=== PATIENT | female | born 2000 | race Two or more races ===

== ENCOUNTER → 2024-09-01 | Outpatient (CLI) | payer MEDICAID, SELFPAY ==
--- NOTE | 2024-09-01 14:30 | XR_ITS ---
Examination: MRI brain without intravenous contrast. Date and time of exam: September 01, 2024 1433 hours INDICATIONS: Headaches dizziness paresthesias and tingling in the feet and hands 3 months Technique: Multiple axial and sagittal images of the brain obtained. Siemens high-resolution 1.5 Patty short bore scanners utilized. Sagittal sections, T1-weighted, TR 500, TE 14, are performed. Axial sections proton-density and T2-weighted have been obtained. Inversion recovery axial images, TR 9, 260, TE 111, TI 2500. Diffusion weighted images, axial sections, TR 4800, TE 128, B value 1000 Axial sections, ADC map, TR 4800, TE 128 Findings: Enlargement of the sella turcica is not present. The optic chiasm and infundibular are not remarkable. Prepontine and interpeduncular cisterns are not enlarged. There is no localized enlargement of the medulla or kalin. Fourth ventricle and cerebellar tonsils appear normal in position. No subacute area of hemorrhage density is seen. Mass in the cerebellopontine angle region is not evident. Globes symmetrical. Orbital musculature including medial lateral rectus muscles do not exhibit abnormality. Diffusion-weighted images demonstrate no foci restricted diffusion. Increased white matter signal not seen Mass effect upon the ventricular system is not identified. Impression: Negative for acute hemorrhage mass effect or midline shift No acute infarct No MR findings diagnostic for demyelinating disease
== END | disposition home or self-care (01) ==
PROVIDERS: PCP Physician Assistant; Referring Provider Physician Assistant; Visit Provider Physician Assistant
DX: R51.9 Headache, unspecified (principal)
CPT/HCPCS: 70551

== ENCOUNTER 2025-03-08 23:42 | Emergency (ER) | payer MEDICAID, SELFPAY ==
[2025-03-08 23:43] VITALS: BMI 31.1
[2025-03-08 23:53] VITALS: BP 132/82; PULSE 69; RESP 18; TEMP 36.7; O2SAT 97
--- NOTE | 2025-03-09 00:06 | XR_ITS ---
Examination: Abdomen sonogram, Limited Date and time of exam: March 09, 2025, 0044 hours INDICATIONS: Epigastric pain beginning 1 week ago Technique: Real-time allred scale transabdominal sonographic images of the upper abdomen obtained. Findings: Contracted gallbladder No gallstones noted Common bile duct 0.3 cm Pancreatic head 2.3 cm Liver 16.1 cm smooth contour no focal liver lesions Normal hepatopetal portal venous flow Patent IVC IMPRESSION: Repeat the gallbladder portion of the study with fasting
--- NOTE | 2025-03-09 00:06 | XR_ITS ---
Examination: CT abdomen and pelvis without contrast. Coronal 3-D reconstructions. Sagittal 2-D reconstructions. Date and time of exam: March 09, 2025, 0203 hours INDICATIONS: Onset abdominal pain back pain flank pain beginning 1 week ago CTDI: vol (mGy): 9.54 DLP: (mGycm): 538 Technique: Axial images of the abdomen have been obtained, 3 mm slice thickness Intravenous contrast material has not been administered. Low dose protocols were performed. One or more of the following dose reduction techniques were used; automated exposure control, adjustment of the mA and/or KV according to patient size, use of iterative reconstruction technique. Findings: No focal liver or splenic lesion, no definite gallstones The pancreatic head is prominent axial image 65 with possible edema Aorta is not enlarged No renal or ureteral calculi, no hydronephrosis Mild thickening of the umbilical tract No bowel obstruction or diverticulitis There is trace free fluid in the pelvis No pericecal inflammatory change No bowel obstruction Anteverted uterus No adnexal mass Contracted urinary bladder Osseous structures are intact IMPRESSION: Suspicious for mild pancreatitis, clinical correlation advised Appendix is not diagnostically visualized, no definite pericecal inflammatory change No bowel obstruction or diverticulitis
--- NOTE | 2025-03-09 00:06 | EDNOTE_ITS ---
ED Abdominal Pain RME/HPI General Chief Complaint: Abdominal Pain Stated complaint: ABD PAIN, BACK PAIN Time seen by provider: 03/09/25 00:05 Arrival date/time: 03/08/25 23:42 RME / HPI RME / HPI narrative: See [facility] for Dr. Rodriguez's HPI Documentation. Related Data Previous Rx's ?Medication ?Instructions ?Recorded acetaminophen 650 mg 650 mg PO Q8H PRN fever or p ain 08/03/18 tablet,extended release #30 tabs ibuprofen 600 mg tablet 600 mg PO Q8H PRN fever or p ain 08/03/18 #30 tabs oseltamivir 75 mg capsule (Tamiflu) 75 mg PO Q12H #10 caps 08/03/18 ibuprofen 800 mg tablet 800 mg PO TID PRN pain #30 t abs 11/05/22 cetirizine 10 mg tablet (24Hour 10 mg PO QDAY PRN kindra rgy symptoms 05/10/23 Allergy) #7 tabs famotidine 20 mg tablet (Pepcid) 20 mg PO QDAY #7 tabs 05/10/23 hydrocortisone 1 % topical cream 1 applic topical TID PRN allergic 05/10/23 reaction #28.4 grams magnesium hydroxide 2,400 mg/10 mL 30 ml PO QDAY PRN c onstipation #60 03/09/25 oral suspension (Milk Of Magnesia mL Concentrated) sennosides 8.6 mg-docusate sodium 4 tab-cap (4 x 8.6-5 0 mg) PO QDAY 03/09/25 50 mg tablet (Senokot-S) PRN constipation #20 tabs Allergies Allergy/AdvReac Type Severity Reaction Status Date / Time No Known Allergies Allergy Verified 03/08/25 23:43 Review of Systems Review of Systems Systems Reviewed: All systems reviewed, normal except as documented ED Exam Narrative Physical exam: See [facility] for Dr. Rodriguez's Physical Exam Documentation. Course Quality Measures none Orders Category Date Time Status Saline [Insert IV] NOW Care 03/09/25 00:[address] abdomen pelvis wo con Stat Exams 03/09/25 00:06 Taken US gall bladder Stat Exams 03/09/25 00:06 Taken US pelvic complete Stat Exams 03/09/25 00:06 Taken Amylase Stat Lab 03/09/25 00:16 Completed Bilirubin,Direct Stat Lab 03/09/25 00:16 Completed CBC Stat Lab 03/09/25 00:16 Completed CMP [Comprehensive Metabolic Panel] Stat Lab 03/09/25 00:16 Completed HCG,Qualitative Serum Stat Lab 03/09/25 00:16 Completed Lipase Stat Lab 03/09/25 00:16 Completed Magnesium Stat Lab 03/09/25 00:16 Completed UA, C/S IF [Urinalysis, C/S if Indicated] Stat Lab 03/09/25 01:10 Completed Ketorolac Inj [Toradol Inj] Med 03/09/25 00:05 Discontinued 30 mg IVP X1 ONE Ondansetron Inj [Zofran Inj] Med 03/09/25 00:05 Discontinued 4 mg IVP X1 ONE Sodium Chloride 0.9% 1000 ml [Ns] 1,000 ml Med 03/09/25 00:05 Discontinued IV 999 mls/hr Vital Signs Vital signs: Vital Signs Temperature 98.1 F 03/08/25 23:53 Pulse Rate 69 03/08/25 23:53 Respiratory Rate 18 03/08/25 23:53 Blood Pressure 132/82 H 03/08/25 23:53 Pulse Oximetry (%) 97 03/08/25 23:53 Oxygen Delivery Method Room Air 03/08/25 23:53 Abdominal Pain MDM MDM Narrative MDM Narrative:: This section includes all my notes and documentations, including HPI, PE, and ED course. Shar Rodriguez MD HPI: 24 y/o female presents with several days of abdominal pain. Has trouble localizing the pain. Has trouble describing the quality and quantity of the pain. Uncertain about exacerbating factors or relieving factors. Has nausea occasionally. Has been eating normally. Drink heavy alcohol but quit 3 years ago. No other complaints. ROS: All negative except as documented in HPI. Physical Exam: General: Alert and oriented. No acute distress when remaining still. Eyes: Conjunctivae and lids clear. ENT: No nasal congestion. Neck: Supple. Heart: RRR. Lungs: No respiratory distress. Good air movement. No rhonchi, wheezing, rales. Abdomen: Soft with diffuse tenderness, difficult to localize. Normal bowel sounds. No distension. No rebound or guarding. Back: No CVA tenderness. Skin: Warm and dry. Neuro: Alert and oriented X 3. I reviewed all diagnostic test results: My review of the Gall Bladder US report is NAD. My review of the Pelvic US report is NAD. My review of the Abdomen/Pelvis CT report is constipation and equivocal pancreatitis. Blood tests and urine tests unremarkable. At this point, diagnoses include: Constipation Equivocal pancreatitis Treatment here included: IVF Toradol 30 mg IV Zofran 4 mg IV Significant improvement noted. Recommended more outpatient care. Based on my best medical judgment, made decision no further evaluation or treatment indicated at this time. Patient understands and agrees to the discharge instructions customized and printed, see below. Discharge instructions from Dr. Rodriguez printed for you: ?After extensive evaluation, there is no emergency.? Such as appendicitis needing urgent surgery. -Your symptoms are most likely due to constipation. ?Take milk of magnesia as prescribed and Senokot S (not plain Senokot, OTC so prescription not needed), four pills, at bedtime as needed.? May take a few days but this will help clear out your bowels. ?To help current constipation and prevent future constipation, increase oral fluid because dehydration cause severe constipation.? Maintain clear urine.? If dark or yellow, increase oral fluid. ?And every day, increase fresh fruits and fresh vegetables and physical exercise. ?See a private doctor on 03/13/2025 for recheck. Ask to review all test results and official radiology reports, to make sure you receive all necessary follow-ups and monitoring. To make sure there is no serious underlying abdominal condition, ask to help you get more care not available here in the ER.? Such as EGD or scoping of your stomach, colonoscopy or scoping the colon, and a referral to see a utility agent. ?Seek immediate medical care with worsening or with any concerns. Shar Rodriguez MD Patient data External records reviewed:: [facility] previous records (Reviewed prior ED records from 05/10/23. Patient was seen for Allergic reaction.) Clinical information provided by:: patient Social determinants that could affect healthcare access:: none Patient has the following chronic illnesses:: None reported How is presenting disease/condition affected by chronic disease/condition?: no chronic disease Evaluation data The following diagnostics were reviewed and interpreted by me:: lab results and radiology exam(s) Lab and/or radiology exams considered but not ordered:: None Interpretation Summary: I reviewed all diagnostic test results: My review of the Gall Bladder US report is NAD. My review of the Pelvic US report is NAD. My review of the Abdomen/Pelvis CT report is constipation and equivocal pancreatitis. Blood tests and urine tests unremarkable. Medications / Prescriptions Medications or Prescriptions considered but not ordered:: None Medication administrations:: Medication Administration History Discontinued Medications Sodium Chloride (Ns) 1,000 mls @ 999 mls/hr IV .Q1H1M ONE Stop: 03/09/25 01:05 Last Infusion: 03/09/25 01:41 Dose: Infused Documented By: Admin: 03/09/25 00:13 Dose: 999 mls/hr Documented By: MARIBELL Ketorolac Tromethamine (Ketorolac Inj 30 Mg/Ml Vial) 30 mg IVP X1 ONE Stop: 03/09/25 00:06 Last Admin: 03/09/25 00:13 Dose: 30 mg Documented By: MARIBELL Ondansetron HCl (Ondansetron Inj 2 Mg/Ml Inj 2 Ml) 4 mg IVP X1 ONE; Protocol Stop: 03/09/25 00:06 Last Admin: 03/09/25 00:13 Dose: 4 mg Documented By: MARIBELL Treatment here included: IVF Toradol 30 mg IV Zofran 4 mg IV Consultations Consultation(s) initiated? (list below): No Diagnosis Differential diagnosis abdominal pain: abdominal pain, calculus of kidney, constipation, diverticulitis, gastroenteritis, pancreatitis and other (Cholecystitis, Cholelithiasis) Most likely diagnosis given after review of the tests above:: Constipation Equivocal pancreatitis Admission Indicated Admission indicated?: not indicated Explain why admission is indicated or not indicated:: With significant improvement and no condition needing emergent intervention, there was no indication for admission. Admission Request Was there a request for admission?: No Disposition Plan Disposition Plan: Discharge Discharge Attestation Discharge Attestation: The patient and all family members were given an opportunity to ask questions and understood the discharge instructions. Discharge instructions specifically effects, indications for sooner follow up or return to the emergency department, and the expected course of current diagnosis. Patient condition: Stable Discharge Plan Plan Patient Disposition: HOME (Self Care) Prescriptions/Referrals Prescriptions/Med Rec: New sennosides-docusate sodium [Senokot-S] 8.6-50 mg tablet 4 tab-cap PO QDAY PRN (Reason: constipation) Qty: 20 0RF magnesium hydroxide [Milk Of Magnesia Concentrated] 2,400 mg/10 mL suspension 30 ml PO QDAY PRN (Reason: constipation) Qty: 60 0RF No Action acetaminophen 650 mg tablet extended release 650 mg PO Q8H PRN (Reason: fever or pain) Qty: 30 0RF Rx Instructions: swallow whole; do not crush, chew, break, dissolve, cut, or open ibuprofen 600 mg tablet 600 mg PO Q8H PRN (Reason: fever or pain) Qty: 30 0RF Rx Instructions: prn pain / fever oseltamivir [Tamiflu] 75 mg capsule 75 mg PO Q12H Qty: 10 0RF ibuprofen 800 mg tablet 800 mg PO TID PRN (Reason: pain) Qty: 30 0RF cetirizine [24Hour Allergy] 10 mg tablet 10 mg PO QDAY PRN (Reason: allergy symptoms) Qty: 7 0RF famotidine [Pepcid] 20 mg tablet 20 mg PO QDAY Qty: 7 0RF hydrocortisone 1 % cream 1 applic topical TID PRN (Reason: allergic reaction) Qty: 28.4 0RF Referrals: No Primary/Family,Physician [Primary Care Provider] - In 1 week Problem List Clinical Impression: Constipation, Pancreatitis Patient/Caregiver Discharge Instructions Discharge Activity: activity as tolerated Education Materials: ED Constipation (Adult), ED Pancreatitis Additional Instructions: Discharge instructions from Dr. Rodriguez printed for you: ?After extensive evaluation, there is no emergency.? Such as appendicitis needing urgent surgery. -Your symptoms are most likely due to constipation. ?Take milk of magnesia as prescribed and Senokot S (not plain Senokot, OTC so prescription not needed), four pills, at bedtime as needed.? May take a few days but this will help clear out your bowels. ?To help current constipation and prevent future constipation, increase oral fluid because dehydration cause severe constipation.? Maintain clear urine.? If dark or yellow, increase oral fluid. ?And every day, increase fresh fruits and fresh vegetables and physical exercise. ?See a private doctor on 03/13/2025 for recheck. Ask to review all test results and official radiology reports, to make sure you receive all necessary follow-ups and monitoring. To make sure there is no serious underlying abdominal condition, ask to help you get more care not available here in the ER.? Such as EGD or scoping of your stomach, colonoscopy or scoping the colon, and a referral to see a utility agent. ?Seek immediate medical care with worsening or with any concerns. Print Language: [place] Stand Alone Forms: [employer] Award Info., Patient Portal Info Letter
--- NOTE | 2025-03-09 00:06 | XR_ITS ---
Examination: Pelvic ultrasound, transabdominal, complete Technique: Transabdominal ultrasound of the pelvis performed using grayscale imaging Date and time of exam: March 09, 2025, 0055 hours INDICATIONS: Pelvic pain beginning 1 week ago FINDINGS: Uterus 8.8 cm endometrial stripe 0.4 cm No uterine mass or intrauterine gestation Right ovary 3.7 cm arterial flow Left ovary 3.0 cm arterial flow IMPRESSION: Negative examination
[2025-03-09] MEDS: SODIUM CHLORIDE 0.9% 1000 ML 1,000 ML 999 ML IV (00:13)
[2025-03-09] MEDS: ONDANSETRON INJ 2 MG/ML INJ 2 ML 4 MG IVP (00:13)
[2025-03-09] MEDS: KETOROLAC INJ 30 MG/ML VIAL IVP (00:13)
[2025-03-09 00:35] LABS: Basophils # (Auto) 0.0 Thou/mm3 (0.0-0.2); Basophils % (Auto) 1 % (0-2.5); Eosinophils # (Auto) 0.1 Thou/mm3 (0.0-0.5); Eosinophils % (Auto) 2 % (0-10); Hematocrit 38.0 % (36.0-46.0); Hemoglobin 12.5 g/dL (12.0-16.0); Immature Granulocytes Auto 0.02 Thou/mm3 (0.00-0.00); Lymphocytes # (Auto) 1.3 Thou/mm3 (1.0-4.8); Lymphocytes % (Auto) 24 % (10-50); Mean Corpuscular HGB Conc 32.9 g/dl (31.0-37.0); Mean Corpuscular Hemoglobin 27.7 pg (25.0-35.0); Mean Corpuscular Volume 84 fL (80-100); Monocytes # (Auto) 0.5 Thou/mm3 (0.0-0.8); Monocytes % (Auto) 8 % (0-12); Neutrophils # (Auto) 3.7 Thou/mm3 (1.8-7.7); Neutrophils % (Auto) 65 % (37-80); Nucleated Red Blood Cell # 0.00 Thou/mm3 (0.00-0.00); Nucleated Red Blood Cell % 0 /100 WBC (0); Platelet Count 305 Thou/mm3 (140-440); RDW Standard Deviation 40.6 fL (36.4-46.3); Red Blood Count 4.51 Miln/mm3 (4.00-5.20); White Blood Count 5.7 Thou/mm3 (3.6-11.0)
[2025-03-09 00:54] LABS: HCG,Qualitative Serum Negative
[2025-03-09 00:56] LABS: Alanine Aminotransferase 16 U/L (10-49); Albumin, Serum 4.8 gm/dL (3.5-5.0); Albumin/Globulin Ratio 2.7 (1.2-2.2); Alkaline Phosphatase 30 U/L (46-116); Amylase 64 U/L (30-118); Anion Gap 9 (7-16); Aspartate Amino Transferase 18 U/L (0-34); BUN/Creatinine Ratio 15 Ratio (12-20); Bilirubin,Direct 0.2 mg/dL (0.0-0.3); Bilirubin,Total 0.6 mg/dL (0.3-1.2); Blood Urea Nitrogen 12 mg/dL (9-23); Calcium 8.8 mg/dL (8.3-10.6); Calcium (Corrected) 8.8 mg/dL (8.5-10.1); Carbon Dioxide 27.1 mMol/L (20.0-31.0); Chloride 105 mMol/L (98-107); Creatinine (Component) 0.8 mg/dL (0.6-1.3); Estimated Creatinine Clearance 126.2 mL/min (>60); Globulin 1.8 gm/dL (2.3-3.5); Glucose 87 mg/dL (74-106); Lipase 38 U/L (12-53); Magnesium 1.8 mg/dL (1.6-2.6); Osmolality,Calculated 279 (275-295); Potassium 3.8 mMol/L (3.4-5.1); Sodium 141 mMol/L (136-145); Total Protein 6.6 gm/dL (5.7-8.2); eGFR > 60 See Note
[2025-03-09 01:23] LABS: Collection Type, Urine Clean Catch
--- NOTE | 2025-03-09 01:27 | PC.NURSE ---
pt was taken to radiology for US and was brought back to . pt states pain med that was given earlier is helping alot. pt provided a urine..
[2025-03-09 01:29] LABS: Bilirubin,Urine Negative (Negative); Blood,Urine Negative (Negative); Clarity,Urine Clear (Clear/Hazy); Color,Urine Lt-Yellow (Lt Yel-Yel); Culture Indicated,Urine Not Indicated; Glucose, Urine Negative (Negative); Ketones,Urine Negative (Negative); Leukocyte Esterase,Urine Positive (Negative); Nitrite,Urine Negative (Negative); PH,Urine 6.5 (5.0-7.0); Protein,Urine Negative (Neg - Trace); RBC,Urine 1 /hpf (0-3); Specific Gravity,Urine 1.013 (1.001-1.035); Squamous Epithelial Cell,Urine 2 /hpf (0-5); Urobilinogen,Urine Negative mg/dL (0.0-1.0); WBC,Urine 3 /hpf (0-5)
--- NOTE | 2025-03-09 01:43 | PRELIM_ITS ---
Right upper quadrant abdominal ultrasound. March 09, 2025 0046 hours Clinical history: RUQ tenderness Findings: The liver is normal in echogenicity. No intrahepatic biliary ductal dilatation. The main portal vein is patent and demonstrates hepatopetal flow. The gallbladder is contracted. No gallbladder calculus, wall thickening or pericholecystic fluid is demonstrated. The common bile duct is normal in caliber at 2.7 mm. The pancreas is unremarkable to the extent visualized. The inferior vena cava is unremarkable to the extent visualized. Impression: Contracted gallbladder. No evidence of cholelithiasis, wall thickening, pericholecystic fluid or biliary dilatation. Recommend followup after adequate fasting as indicated. Report Electronically Signed By: Jacobo Mendez 03/09/2025 1:42:03 AM [EST]
--- NOTE | 2025-03-09 01:45 | PRELIM_ITS ---
Pelvic ultrasound (transabdominal) with Doppler. March 09, 2025 0052 hours Clinical history: Pelvic pain Findings: The uterus is anteverted, normal in size measuring 8.8 x 3.9 x 4.9 cm. The endometrium is unremarkable and measures 0.4 cm. The right ovary measures 3.7 x 1.7 x 2.4 cm. The left ovary measures 3 x 2.5 x 2.8 cm. Both ovaries demonstrate color flow and spectral waveforms on Doppler evaluation. There is no adnexal mass. There is no free fluid on the submitted images. Impression: No abnormality identified. Report Electronically Signed By: Jacobo Mendez 03/09/2025 1:44:18 AM [EST]
[2025-03-09 02:52] VITALS: BP 118/70; PULSE 54; RESP 16; O2SAT 99
--- NOTE | 2025-03-09 03:58 | PRELIM_ITS ---
CT scan of the abdomen and pelvis without intravenous contrast (axial sections with sagittal and coronal reformats) March 09, 2025 at 0203 hours Clinical History: Abdominal pain. Comparison: Correlated with the prior ultrasound pelvis study performed earlier today at 0052 hours. Findings: The head of the pancreas is prominent and demonstrates mild peripancreatic fat stranding. No peripancreatic fluid or fluid collection. No pancreatic or biliary ductal dilatation. The liver, gallbladder, spleen, kidneys and adrenals are unremarkable on this noncontrast study. No evidence of bowel obstruction. A moderate amount of fecal material is present in the colon. The appendix is not visualized. There are subcentimeter mesenteric and retroperitoneal lymph nodes. The urinary bladder is partially distended and shows mild wall thickening; possibility of cystitis cannot be excluded. The uterus is unremarkable. There are small ovarial follicles bilaterally. There is no free fluid or free air. Calcific densities are seen in the pelvis, likely representing phleboliths. The osseous structures are unremarkable. Streaky subsegmental atelectasis/scarring is noted at the left lung base. Please note that evaluation of soft tissue/vascular structures and bowel loops is limited due to absence of IV and oral contrast. Impression: 1. Findings suspicious for acute focal pancreatitis involving the pancreatic head. No peripancreatic fluid or loculated fluid collection identified. 2. Partially distended urinary bladder with mild wall thickening; possibility of cystitis cannot be excluded. 3. Other findings as described above. Suggest clinical correlation and follow up accordingly. Discussion Details: Results verbally communicated to : Dr. Rodriguez at 03:55 AM 03/09/2025 Report Electronically Signed By: Cecilio Acosta 03/09/2025 3:57:37 AM [EST]
[2025-03-09 04:20] VITALS: BP 125/85; PULSE 63; RESP 18; O2SAT 99
== END 2025-03-09 04:22 | disposition home or self-care (01) ==
PROVIDERS: Emergency Provider Emergency Medicine
DX: K85.90 Acute pancreatitis without necrosis or infection, unspecified (principal); K59.00 Constipation, unspecified
CPT/HCPCS: 36415; 74176; 76705; 76856; 80053; 81001; 82150; 82248; 83690; 83735; 84703; 85025; 96361; 96374; 96375; 99284; J1885; J2405; J7030